=== PATIENT | female | born 1980 | race Caucasian/White ===

== ENCOUNTER 2017-11-16 18:03 | Emergency (ER) | payer OTHER ==
[2017-11-16] MEDS ORDERED: Acetaminophen 325 MG Tab PO ONE (18:34)
[2017-11-16] MEDS ORDERED: Ondansetron 4 MG/2 ML SDV IVPUSH ONE (18:34)
--- NOTE | 2017-11-16 18:39 | EDM.PDOC ---
ED HPI GENERAL MEDICAL PROBLEM - General Chief Complaint: Headache Stated Complaint: RIGHT SIDE HEADACHE AND NECK PAIN Time Seen by Provider: 11/16/17 18:29 Source of Information: Reports: Patient, Old Records, RN Notes Reviewed History Limitations: Reports: No Limitations - History of Present Illness INITIAL COMMENTS - FREE TEXT/NARRATIVE: 37-year-old female presents to the emergency department today with complaint of headache, she does have a history of migraines however she states this one feels different she also has a history of carotid dissection on the right which is predominantly where her pain is mainly in the temporal region. She does have photophobia and nausea headache Pain Score (Numeric/FACES): 7 - Related Data Allergies Allergy/AdvReac Type Severity Reaction Status Date / Time coconut Allergy Severe Anaphylactic Verified 11/16/17 18:16 Shock dicyclomine [From Bentyl] Allergy Mild Rash Verified 11/16/17 18:16 morphine Allergy Mild Other Verified 11/16/17 18:16 Home Meds: Home Meds Atenolol/Chlorthalidone [Atenolol-Chlorthalidone 50-25] 50 mg PO DAILY 03/25/16 [History] Escitalopram [Lexapro] 10 mg PO DAILY 11/16/17 [History] Ranitidine HCl [Ranitidine] 150 mg PO DAILY 11/16/17 [History] Past Medical History Cardiovascular History: Reports: Hypertension, Other (See Below) Other Cardiovascular History: carotid dissection on right 2013, medically managed Gastrointestinal History: Reports: GERD 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: Polycystic Ovaries, , Spontaneous Other CIGAR MAKING MACHINE OPERATOR History: polycystic ovaries Neurological History: Reports: Migraines Other Neuro History: carotid disection-2013 Psychiatric History: Reports: Anxiety, Depression - Past Surgical History Cardiovascular Surgical History: Reports: None GI Surgical History: Reports: Cholecystectomy Female Surgical History: Reports: Breast Reduction Social & Family History - Tobacco Use Smoking Status *Q: Never Smoker - Caffeine Use Caffeine Use: Reports: Coffee, Soda - Recreational Drug Use Recreational Drug Use: No ED ROS GENERAL - Review of Systems Review Of Systems: See Below Constitutional: Denies: Fever, Chills HEENT: Reports: Other (Photophobia) Respiratory: Reports: No Symptoms Cardiovascular: Reports: No Symptoms GI/Abdominal: Reports: Nausea : Reports: No Symptoms Neurological: Reports: Headache - Physical Exam Exam: See Below Exam Limited By: No Limitations General Appearance: Alert, WD/WN, No Apparent Distress Eye Exam: Bilateral Eye: EOMI, Normal Fundi, Normal Inspection, PERRL Head Exam: Atraumatic, Normocephalic Neck: Normal Inspection, Supple, Non-Tender, Full Range of Motion Respiratory/Chest: No Respiratory Distress, Lungs Clear, Normal Breath Sounds, No Accessory Muscle Use Cardiovascular: Regular Rate, Rhythm, No Murmur Course - Vital Signs Last Recorded V/S: Last Vital Signs Temp 98.1 F 11/16/17 18:17 Pulse 82 11/16/17 19:45 Resp 16 11/16/17 19:45 BP 149/93 H 11/16/17 19:45 Pulse Ox 98 11/16/17 19:45 - Orders/Labs/Meds Orders: Active Orders 24 hr Category Date Time Status Peripheral IV Care [RC] . DIRECTED Care 11/16/17 18:36 Active Ang Head [CT] Stat Exams 11/16/17 18:35 Taken Ang Neck [CT] Stat Exams 11/16/17 18:35 Taken Iopamidol [Isovue-370 (76%)] Med 11/16/17 19:00 Active 100 ml IV . DIRECTED Sodium Chloride 0.9% [Normal Saline] 80 ml Med 11/16/17 19:00 Active IV ASDIRECTED Sodium Chloride 0.9% [Saline Flush] Med 11/16/17 18:35 Active 10 ml FLUSH ASDIRECTED PRN Peripheral IV Insertion Adult [OM.PC] Urgent Oth 11/16/17 18:35 Ordered Medication Orders Sodium Chloride (Normal Saline) 80 mls @ 3 mls/sec IV ASDIRECTED ROSA Last Admin: 11/16/17 19:23 Dose: 3 mls/sec Iopamidol (Isovue-370 (76%)) 100 ml IV . DIRECTED ROSA Last Admin: 11/16/17 19:23 Dose: 100 ml Sodium Chloride (Saline Flush) 10 ml FLUSH ASDIRECTED PRN PRN Reason: Keep Vein Open Last Admin: 11/16/17 19:23 Dose: 10 ml Admin: 11/16/17 18:51 Dose: 10 ml Meds: Medications Generic Name Dose Route Start Last Admin Trade Name Freq PRN Reason Stop Dose Admin Sodium Chloride 80 mls @ 3 mls/sec 11/16/17 19:00 11/16/17 19:23 Normal Saline IV 3 mls/sec ASDIRECTED ROSA Administration Iopamidol 100 ml 11/16/17 19:00 11/16/17 19:23 Isovue-370 (76%) IV 100 ml . DIRECTED ROSA Administration Sodium Chloride 10 ml 11/16/17 18:35 11/16/17 19:23 Saline Flush FLUSH 10 ml ASDIRECTED PRN Administration Keep Vein Open Discontinued Medications Generic Name Dose Route Start Last Admin Trade Name Chris PRN Reason Stop Dose Admin Acetaminophen 650 mg 11/16/17 18:34 11/16/17 18:51 Tylenol PO 11/16/17 18:35 650 mg NOW ONE Administration Lactated Ringer's 1,000 mls @ 999 mls/hr 11/16/17 19:57 11/16/17 20:15 Ringers, Lactated IV 11/16/17 20:57 999 mls/hr BOLUS ONE Administration Ketorolac Tromethamine 30 mg 11/16/17 19:57 11/16/17 20:15 Toradol IVPUSH 11/16/17 19:58 30 mg ONETIME ONE Administration Ondansetron HCl 4 mg 11/16/17 18:34 11/16/17 18:51 Zofran IVPUSH 11/16/17 18:35 4 mg ONETIME ONE Administration Departure - Departure Time of Disposition: 21:25 Disposition: Home, Self-Care 01 Condition: Good Clinical Impression: Migraine Qualifiers: Migraine type: without aura Status migrainosus presence: without status migrainosus Intractability: not intractable Qualified Code(s): G43.009 - Migraine without aura, not intractable, without status migrainosus - Discharge Information Referrals: Antoni Mathew NP [Primary Care Provider] - Forms: ED Department Discharge Additional Instructions: Continue with your regular medications, Please followup with your primary care provider in 3-5 days if not better, please call return to the emergency department with worsening of symptoms. - My Orders Last 24 Hours: My Active Orders 11/16/17 18:35 Ang Head [CT] Stat Ang Neck [CT] Stat Sodium Chloride 0.9% [Saline Flush] 10 ml FLUSH ASDIRECTED PRN Peripheral IV Insertion Adult [OM.PC] Urgent 11/16/17 18:36 Peripheral IV Care [RC] . DIRECTED 11/16/17 19:00 Iopamidol [Isovue-370 (76%)] 100 ml IV . DIRECTED Sodium Chloride 0.9% [Normal Saline] 80 ml IV ASDIRECTED - Assessment/Plan Last 24 Hours: My Active Orders 11/16/17 18:35 Ang Head [CT] Stat Ang Neck [CT] Stat Sodium Chloride 0.9% [Saline Flush] 10 ml FLUSH ASDIRECTED PRN Peripheral IV Insertion Adult [OM.PC] Urgent 11/16/17 18:36 Peripheral IV Care [RC] . DIRECTED 11/16/17 19:00 Iopamidol [Isovue-370 (76%)] 100 ml IV . DIRECTED Sodium Chloride 0.9% [Normal Saline] 80 ml IV ASDIRECTED Plan: Assessment Acuity = acute Site and laterality = migraine type headache Etiology = unclear etiology Manifestations = none Location of injury = Home Lab values = CTA of head and neck were negative for any dissection Plan She had good improvement with fluids, Zofran, Toradol plan to discharge home follow-up with primary care 3-5 days if not better This note was dictated using [employer] recognition software please call with any questions on syntax or grammar.
[2017-11-16] MEDS: Sodium Chloride 0.9% 10 ML Syringe FLUSH PRN ×2 (18:51→19:23)
[2017-11-16] MEDS ORDERED: Sodium Chloride 0.9% 80 ML IV SCH (19:00)
[2017-11-16] MEDS ORDERED: Iopamidol 755 Mg/ML 100 ML Bottle IV SCH (19:00)
[2017-11-16 19:45] VITALS: BP 149/93
[2017-11-16] MEDS ORDERED: Lactated Ringers 1,000 ML IV ONE (19:57)
[2017-11-16] MEDS ORDERED: Ketorolac 30 MG/ML SDV IVPUSH ONE (19:57)
== END 2017-11-16 21:48 | disposition home or self-care (01) ==
LOC: JP.ED 18:03
DX: G43.009 Migraine without aura, not intractable, without status migrainosus (principal); I10 Essential (primary) hypertension; Z91.018 Allergy to other foods; Z88.5 Allergy status to narcotic agent; Z88.8 Allergy status to other drugs, medicaments and biological substances; Z79.899 Other long term (current) drug therapy
CPT/HCPCS: 70496; 70498; 96361; 96374; 96375; 99284; A9270; J1885; J2405; J7030; J7050; J7120; Q9967

== ENCOUNTER 2018-06-05 14:48 | Emergency (ER) | payer OTHER ==
[2018-06-05 14:59] VITALS: BP 149/105
--- NOTE | 2018-06-05 15:48 | EDM.PDOCBH ---
ED HPI GENERAL MEDICAL PROBLEM - General Chief Complaint: Behavioral/Psych Stated Complaint: SUICIDAL IDEATION Time Seen by Provider: 06/05/18 15:35 Source of Information: Reports: Patient, Old Records, RN History Limitations: Reports: No Limitations - History of Present Illness INITIAL COMMENTS - FREE TEXT/NARRATIVE: 38 yo female with long standing depression presents with suicidal ideation. Is going through a divorce. Had her Lexapro dose increased in and thought for a while it was helping. Has not done anything to attempt self-harm. Has a pHx of previous suicidal ideation. No recent illnesses. 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) (usual home meds) - Related Data Allergies Allergy/AdvReac Type Severity Reaction Status Date / Time coconut Allergy Severe Anaphylactic Verified 06/05/18 15:00 Shock dicyclomine [From Bentyl] Allergy Mild Rash Verified 06/05/18 15:00 morphine Allergy Mild Other Verified 06/05/18 15:00 Home Meds: Home Meds Atenolol/Chlorthalidone [Atenolol-Chlorthalidone 50-25] 50 mg PO DAILY 03/25/16 [History] Escitalopram [Lexapro] 20 mg PO DAILY 11/16/17 [History] Ranitidine HCl [Ranitidine] 150 mg PO DAILY 11/16/17 [History] Amitriptyline [Elavil] 1 tab PO BEDTIME PRN 06/05/18 [History] SUMAtriptan [Imitrex] 1 tab PO ASDIRECTED PRN 06/05/18 [History] Past Medical History Cardiovascular History: Reports: Hypertension, Other (See Below) Other Cardiovascular History: carotid dissection on right 2013, medically managed (healed) Respiratory History: Reports: Asthma Gastrointestinal History: Reports: GERD FINANCIAL INTERN History: Reports: Polycystic Ovaries, , Spontaneous Other FINANCIAL INTERN History: polycystic ovaries Neurological History: Reports: Migraines Other Neuro History: carotid disection-2013 Psychiatric History: Reports: Anxiety, Depression Endocrine/Metabolic History: Reports: Other (See Below) Other Endocrine/Metabolic History: thyroid nodules - Past Surgical History GI Surgical History: Reports: Cholecystectomy Female Surgical History: Reports: Breast Reduction Social & Family History - Tobacco Use Smoking Status *Q: Never Smoker - Caffeine Use Caffeine Use: Reports: Coffee, Soda ED ROS GENERAL - Review of Systems Review Of Systems: See Below Constitutional: Reports: No Symptoms HEENT: Reports: No Symptoms Respiratory: Reports: No Symptoms Cardiovascular: Reports: No Symptoms GI/Abdominal: Reports: No Symptoms : Reports: No Symptoms Musculoskeletal: Reports: No Symptoms Skin: Reports: No Symptoms Neurological: Reports: No Symptoms Psychiatric: Reports: Depression, Suicidal Ideation ED EXAM, BEHAVIORAL HEALTH - Physical Exam Exam: See Below Exam Limited By: No Limitations General Appearance: Alert, WD/WN, No Apparent Distress, Obese Eye Exam: Bilateral Eye: Normal Inspection Ears: Normal External Exam, Normal Canal, Hearing Grossly Normal, Normal TMs Nose: Normal Inspection, No Blood Throat/Mouth: Normal Inspection, Normal Lips, Normal Oropharynx, Normal Voice, No Airway Compromise Head: Atraumatic, Normocephalic Neck: Normal Inspection, Supple, Non-Tender Respiratory/Chest: No Respiratory Distress, Lungs Clear, Normal Breath Sounds, No Accessory Muscle Use Cardiovascular: Regular Rate, Rhythm, No Edema GI/Abdominal: Normal Bowel Sounds, Soft, Non-Tender, No Distention Back Exam: Normal Inspection, CVA Tenderness (R), CVA Tenderness (L) Extremities: Normal Inspection, Normal Range of Motion, Non-Tender, No Pedal Edema Neurological: Alert, Normal Mood/Affect, CN II-XII Intact, Normal Cognition, No Motor/Sensory Deficits, Oriented x 3 Psychiatric: Alert, Normal Cognition, Oriented, Flat Affect, Suicidal Thoughts. No: Uncooperative, Auditory Hallucinations, Visual Hallucinations Skin Exam: Warm, Dry, Intact, Normal color, No rash COURSE, BEHAVIORAL HEALTH COMP - Course Vital Signs: Last Vital Signs Temp 36.2 C 06/05/18 15:08 Pulse 111 H 06/05/18 15:08 Resp 16 06/05/18 15:08 BP 149/105 H 06/05/18 15:08 Pulse Ox 96 06/05/18 15:08 Orders, Labs, Meds: Laboratory Tests 06/05/18 06/05/18 Range/Units 15:30 15:54 Urine Opiates Screen Negative (NEGATIVE) Ur Oxycodone Screen Negative (NEGATIVE) Urine Methadone Screen Negative (NEGATIVE) Ur Propoxyphene Screen Negative (NEGATIVE) Ur Barbiturates Screen Negative (NEGATIVE) Ur Tricyclics Screen Negative (NEGATIVE) Ur Phencyclidine Scrn Negative (NEGATIVE) Ur Amphetamine Screen Negative (NEGATIVE) U Methamphetamines Scrn Negative (NEGATIVE) Urine MDMA Screen Negative (NEGATIVE) U Benzodiazepines Scrn Negative (NEGATIVE) U Cocaine Metab Screen Negative (NEGATIVE) U Marijuana (THC) Screen Negative (NEGATIVE) Ethyl Alcohol < 3 mg/dL Departure - Departure Time of Disposition: 17:55 Disposition: Home, Self-Care 01 Condition: Fair Clinical Impression: Depressive disorder Depression Qualifiers: Depression Type: unspecified Qualified Code(s): F32.9 - Major depressive disorder, single episode, unspecified - Discharge Information *PRESCRIPTION DRUG MONITORING PROGRAM REVIEWED*: No *COPY OF PRESCRIPTION DRUG MONITORING REPORT IN PATIENT ELISSA: No Instructions: Living With Depression Referrals: Antoni Mathew NP [Primary Care Provider] - Forms: ED Department Discharge Additional Instructions: See your doctor for a re-assessment of your depression medications/doses. Mention to him you may lose your insurance and he/she may be able to work it so you have $$$ savings. Follow through with the plan as outlined by Crisis today. Return as needed.
== END 2018-06-05 17:57 | disposition home or self-care (01) ==
LOC: JP.ED 14:48
DX: F32.9 Major depressive disorder, single episode, unspecified (principal); I10 Essential (primary) hypertension; F41.9 Anxiety disorder, unspecified; Z88.5 Allergy status to narcotic agent
CPT/HCPCS: 36415; 80305; 99285; G0480